=== PATIENT | female | born 2000 | race Two or more races ===

== ENCOUNTER 2022-08-10 17:51 | Emergency (ER) | payer MEDICAID ==
[~2022-08-10] VITALS: Ht 162.6 cm; Wt 82.0 kg
[2022-08-10 18:00] VITALS: BP 156/92
== END 2022-08-11 01:19 | disposition left against medical advice (07) ==
LOC: ER 17:51
DX: R51.9 Headache, unspecified (principal); R42 Dizziness and giddiness; Z53.21 Procedure and treatment not carried out due to patient leaving prior to being seen by health care provider